=== PATIENT | female | born 1990 | race Caucasian/White ===

== ENCOUNTER → 2020-10-31 09:49 | Outpatient (CLI) | payer OTHER, SELFPAY ==
[2020-10-31 19:24] LABS: Add Manual Diff / Slide Review NO; Basophils Absolute Auto 100 /uL (0-100); Basophils Percent Auto 1.5 % (0-2); Eosinophils Absolute Auto 100 /uL (0-450); Eosinophils Percent Auto 2.1 % (2-4); Hematocrit 38.4 % (36-46); Hemoglobin 12.3 g/dL (12.0-16.0); Lymphocytes Absolute Auto 1100 /uL (1100-4500); Lymphocytes Percent Auto 21.5 % (25-40); Mean Corpuscular HGB Conc 32.1 % (30-36); Mean Corpuscular Hemoglobin 24.6 PG (26-34); Mean Corpuscular Volume 76.5 fL (80-100); Monocytes Absolute Auto 400 /uL (0-900); Monocytes Percent Auto 8.4 % (3-14); Neutrophils Absolute Auto 3400 /uL (1500-7000); Neutrophils Percent Auto 66.5 % (50-75); Platelet Count 239 X10^3/uL (150-400); Red Blood Cell Count 5.02 X10^6/uL (4.0-5.2); Red Cell Distribution Width 15.6 % (11.6-14.8); White Blood Cell Count 5.1 X10^3/uL (4.5-11.0)
[2020-10-31 19:41] LABS: Alanine Aminotransferase 18 IU/L (<35); Albumin 4.3 g/dL (3.5-5.0); Albumin Globulin Ratio 1.7 (1.0-2.8); Alkaline Phosphatase 45 U/L (38-126); Aspartate Aminotransferase 31 IU/L (14-36); BUN Creatinine Ratio 22.5 (6-22); Bilirubin Total 0.3 mg/dL (0.2-1.3); Blood Urea Nitrogen 16 mg/dL (7-17); Calcium 9.2 mg/dL (8.4-10.2); Carbon Dioxide 28 mmol/L (22-32); Chloride 103 mmol/L (98-107); Estimated Glomerular Filt Rate > 60.0 mL/min (>60); Globulin 2.6 g/dL (1.7-4.1); Glucose 106 mg/dL (70-100); HEMOLYSIS < 15 (0-50); Potassium 4.8 mmol/L (3.4-5.1); Sodium 139 mmol/L (137-145); Total Protein 6.9 g/dL (6.3-8.2)
[2020-10-31 20:05] LABS: TSH w/ Reflex to FT4 1.87 uIU/mL (0.47-4.68)
== END ==
PROVIDERS: PCP Physician Assistant; Visit Provider Physician Assistant
DX: N92.6 Irregular menstruation, unspecified (principal)
CPT/HCPCS: 80053; 84443; 85025

== ENCOUNTER → 2020-12-12 09:12 | Outpatient (CLI) | payer OTHER, SELFPAY ==
--- NOTE | 2020-12-12 | DI.US.S_ITS ---
PROCEDURE: US OB <= 14 WEEKS FETUS INDICATIONS: DATING AND VIABILITY OUTSIDE/PRIOR DATING DATA: Last menstrual period (LMP): 10/10/20 LMP-based estimated date of delivery (RONI): 07/17/21 First dating scan (date and location): 12/12/20 Estimated date of delivery (RONI) from first dating scan: 07/25/21 TECHNIQUE: Real-time scanning was performed of the fetus and maternal pelvic organs, with image documentation. Endovaginal scanning was also performed to better visualize the fetus and maternal ovaries. COMPARISON: None. FINDINGS: Embryo: 1.5 cm crown-rump length, which correlates with a gestational age of 7 weeks 6 days +/-5 days. heart rate is 145 beats per minute. Measurement variability in dating: +/- 4 weeks by LMP, +/- 7 days by mean sac diameter (use before 6 weeks gestation if crown-rump length not able to be measured), +/- 5 days by crown-rump length (up to 8 weeks 6 days gestation), +/- 7 days by crown-rump length (up to 13 weeks 6 days gestation). Maternal organs: Normal considering gestational status IMPRESSION: Single living intrauterine gestation, 7 weeks 6 day gestational age, +/-5 days. The delivery date therefore is projected to be centered on 07/25/21, +/-5 days. ?-hCG levels and endovaginal scanning: * Should see gestational sac if >7838-2701 IU/L. * Single hCG level, regardless of value cannot distinguish b/w ectopic and IUP. * If hCG level <3000, do not treat for ectopic, to avoid harming possible viable IUP. * If hCG level >3000, most likely non-viable IUP if a sac is not visualized. Get followup hCG AND pelvic US before treating for ectopic . * Any recommended followup: favor short-term US rather than serial hCG levels. Small percentage of ectopics may have hCG changes that mimic IUP or sAb. Gestational age and endovaginal scannin-6-7 rule of thumb * Should see gestational sac by 5 weeks EGA * Should see yolk sac by 6 weeks EGA * Should see embryo by 7 weeks EGA [employer] consensus statement: recommendations for reporting: * Definite ectopic : extra-uterine GS with YS, possibly embryo. * Probably ectopic : extra-uterine sac-like structure or adnexal mass. * of unknown location: no visible IUP or ectopic. o If single hCG level is 3000 or more: viable intrauterine gestation is unlikely but cannot be definitively excluded. o If pt is hemodynamically stable, a single hCG level should not be used to distinguish ectopic from intrauterine , or determining MTX Rx. o hCG and 7-10 day US followup (preferred) until definitive diagnosis. o Most ectopic pregnancies have hCG levels <3000 and often <1000, but is variable and does not predict rupture. * Probable intra-uterine : intra-uterine sac-like structure with no yolk sac or embryo, normal adnexa. * Definite intra-uterine : intra-uterine GS with yolk sac, possible embryo. SRU consensus statement Apr 2012: Findings suspicious but not diagnostic for early failure: * CRL <7 mm and no heart motion. * MGSD 16-24 mm and no embryo seen. * No embryo 7-13 days after US that showed GS without yolk sac. * No embryo 7-10 days after US that showed GS with yolk sac. * Absence of embryo 6 weeks or more after LMP. * Empty amniotic sac adjacent to yolk sac. * Large yolk sac of 7 mm or more. * Small sac size: MGSD minus CRL is < 5 mm. * Sustained bradycardia <80 bpm. Findings diagnostic for early failure: * CRL 7 mm or more and no heart motion. * MGSD 25 mm or more and no embryo seen. * No embryo seen 14 days or more after US showed a GS without yolk sac. * No embryo seen 11 days or more after US showed a GS with yolk sac. Nuchal translucency: abnormal at >3 mm between 10-14 weeks EGA >> Dictated by: Nigel Watson M.D. on 12/12/2020 at 10:21 Approved by: Nigel Watson M.D. on 12/12/2020 at 10:22
== END ==
PROVIDERS: PCP Physician Assistant; Referring Provider Physician Assistant; Visit Provider Nurse Practitioner
DX: Z34.91 Encounter for supervision of normal pregnancy, unspecified, first trimester (principal); Z3A.01 Less than 8 weeks gestation of pregnancy
CPT/HCPCS: 76801; 76817

== ENCOUNTER → 2021-03-09 10:12 | Outpatient (CLI) | payer SELFPAY ==
--- NOTE | 2021-03-09 | DI.US.S_ITS ---
PROCEDURE: US OB >= 14 WEEKS FETUS INDICATIONS: ANATOMY OUTSIDE/PRIOR DATING DATA: Last menstrual period (LMP): 10/10/20. LMP-based estimated date of delivery (RONI): 07/17/21 . First dating scan (date and location): 12/12/20 . Estimated date of delivery (RONI) from first dating scan: 07/25/21 . TECHNIQUE: Real-time scanning was performed of the fetus, with image documentation and biometric measurements. Endovaginal scanning: Not needed COMPARISON: 1st OB ultrasound. FINDINGS: General: A single living intrauterine gestation is present. Presentation: Breech Placenta: Placental position is anterior , without previa. Amniotic fluid index: 10.7 cm, normal range is 5-24 cm. heart rate: 147 beats per minute. Maternal cervical canal: 3.9 cm long. Normal lower limit is 2.5 cm. Report any funneling of internal cervical os: % of canal length, shape (U or V), width or any U-shaped funneling. biometrics: Biparietal diameter: 4.8 cm, 20 weeks 3 days Head circumference: 18.0 cm, 20 weeks 3 days Abdominal circumference: 14.9 cm, 20 weeks 1 day Femur length: 2.9 cm, 18 weeks 6 days Estimated gestational age from initial scan: 20 weeks 2 days Composite gestational age from present scan: 20 weeks 0 days Estimated weight and percentile: 305 g, 16th percentile Measurement variability for biometric dating: +/- 7 days from 14 weeks to 15 weeks 6 days gestation, +/- 10 days from 16 weeks to 21 weeks 6 days gestation, +/- 2 weeks from 22 weeks to 27 weeks 6 days gestation, +/- 3 weeks for 28 weeks gestation or later. weight reference: 4500 g or EFW >90/95% is considered macrosomia or large for gestational age. EFW <10% is small for gestational age. EFW 5% or less is considered intra-uterine growth restriction. Anatomic survey: Neuro: Ventricles are non-dilated at less than 10 mm. Cisterna magna is normal at 3-11 mm. Cerebellum is normal in size and morphology. Nuchal skin fold: Normal at less than 6 mm between 14-21 weeks gestational age. Face: Nose and lips, facial profile are normal. Spine: No evidence for spina bifida. Heart: 4-chambered heart is present, with normal ventricular outflow tracts. Diaphragm: Diaphragm is intact. Stomach: Left-sided stomach is present. Kidneys: No hydronephrosis. Normal is less than 5 mm in 2nd trimester, less than 7 mm in 3rd trimester. Cord: 3-vessel cord has orthotopic insertion. Bladder: Normal in size. Extremities: All 4 extremities identified. IMPRESSION: Appropriate interval growth, no anomaly seen. Breech presentation, normal amniotic fluid volume. Dictated by: Nigel Watson M.D. on 03/09/2021 at 16:58 Approved by: Nigel Watson M.D. on 03/09/2021 at 17:01
== END ==
PROVIDERS: PCP Physician Assistant; Referring Provider Nurse Practitioner Obstetrics & Gynecology; Visit Provider Nurse Practitioner Obstetrics & Gynecology
DX: Z34.92 Encounter for supervision of normal pregnancy, unspecified, second trimester (principal); Z3A.20 20 weeks gestation of pregnancy
CPT/HCPCS: 76811

== ENCOUNTER → 2021-06-30 13:02 | Outpatient (ROUT) | payer OTHER, SELFPAY | PROVIDERS: PCP Physician Assistant; Visit Provider Nurse Practitioner Obstetrics & Gynecology | DX: Z34.90 Encounter for supervision of normal pregnancy, unspecified, unspecified trimester (principal); Z36.85 Encounter for antenatal screening for Streptococcus B; Z3A.36 36 weeks gestation of pregnancy | CPT/HCPCS: 87081 ==

== ENCOUNTER 2021-07-24 19:09 | Inpatient (IN) | payer OTHER, SELFPAY ==
--- NOTE | 2021-07-24 19:21 | P.HPOB_ITS ---
OB HPI Date/Time Date of admission: 07/24/21 Date Patient Seen: 07/24/21 Time Patient Seen: 19:21 History of Present Condition Chief complaint: : 1 Para: 0 Estimated Date of Delivery: 07/25/21 Estimated Gestational Age (weeks): 39.6 Narrative: Maria M Marks is a 31 year old female @ [id number] by LMP and early US who presents for evaluation of labor. Contractions started this morning and s lowly progressed in frequency and intensity. Noticed some bloody show and mucus discharge throughout the day. +FM. No LOF. Uncomplicated PN care w/ CNM. Desires low intervention . Partner, Ramu, and sister are present and supportive. History of Present care: good care, initiated at week # (11), number of visits (9) and pounds weight gain (38) Dating criteria: LMP confirmed by 1st trimester US Ultrasounds: normal mid trimester US Obstetrical complications: none Medical complications: none Preadmission Labs Blood type: A (+) positive -: Antibody screen: negative, GBS status: negative, HBsAG: negative, HIV: negative and RPR/VDLR: negative -: Chlamydia screen: not detected and Gonorrhea screen: not detected -: Rubella: immune and Varicella: immune HCT: 34.7 HCAB: negative Cell-free DNA: negative, male 1 hr GTT: 131 Evaluation Evaluation Baseline heart rate: 135 Variability: Moderate (11-25) monitor accelerations: Present Monitor Decelerations: Absent Contraction Frequency (minutes): 3 Uterine Contraction Intensity: Strong/Firm Dilation (cm): 6 Effacement (%): 90 Dilation: >/=5 cm Effacement: >/=80% station: -2 Position of cervix: posterior Consistency: soft Ramos score: 9 PFSH Medical History (Updated 07/24/21 @ 19:30 by Barbara Gutierrez CNM) Eating disorder Nail fungus Family History (Updated 07/24/21 @ 19:31 by Barbara Gutierrez CNM) Grandmother Diabetes mellitus Grandfather Stroke Mother Depression Social History Smoking Status: Never smoker Meds Home Medications and Allergies Home Medications Medication Instructions Recorded Confirmed Type No Known Home Medications 10/05/20 10/31/20 History Allergies Allergy/AdvReac Type Severity Reaction Status Date / Time No Known Drug Allergies Allergy Verified 10/31/20 09:07 Review of Systems Review of Systems ROS: Yes All systems reviewed with the patient and are negative except as otherwise documented OB Exam Narrative Exam Narrative: VS: BP 134/75mmHg , HR 80bpm, T 36.1C Temporal Resp Effort & Inspection: normal respiratory effort Auscultation: clear to auscultation bilaterally Cardio Rate: regular rate Rhythm: regular rhythm Heart Sounds: S1 normal and S2 normal Presentation: vertex Objective Labs Result Diagrams: 07/24/21 19:45 Assessment and Plan Assessment and Plan Assessment and Plan narrative: A: Term nullipara Active labor no indication for GBS prophylaxis Cat I FHR P: Admit, routine orders. Labor support, PRN. Reassess in 4 hours or sooner, PRN.
[2021-07-24 20:01] LABS: Add Manual Diff / Slide Review NO; Basophils Absolute Auto 0 /uL (0-100); Basophils Percent Auto 0.2 % (0-2); Eosinophils Absolute Auto 100 /uL (0-450); Eosinophils Percent Auto 1.3 % (2-4); Hematocrit 37.9 % (36-46); Hemoglobin 12.3 g/dL (12.0-16.0); Lymphocytes Absolute Auto 1900 /uL (1100-4500); Lymphocytes Percent Auto 16.1 % (25-40); Mean Corpuscular HGB Conc 32.5 % (30-36); Mean Corpuscular Hemoglobin 24.1 PG (26-34); Mean Corpuscular Volume 74.2 fL (80-100); Monocytes Absolute Auto 1300 /uL (0-900); Monocytes Percent Auto 10.8 % (3-14); Neutrophils Absolute Auto 8400 /uL (1500-7000); Neutrophils Percent Auto 71.6 % (50-75); Platelet Count 201 X10^3/uL (150-400); Red Blood Cell Count 5.11 X10^6/uL (4.0-5.2); Red Cell Distribution Width 15.4 % (11.6-14.8); White Blood Cell Count 11.7 X10^3/uL (4.5-11.0)
[2021-07-24 20:19] LABS: COVID19 -Nasal RAPID Negative (Negative)
[2021-07-24 20:22] VITALS: BP 134/75
[2021-07-25] MEDS: OXYTOCIN PREMIX 30 UNIT/500 ML PLAST..BAG 200 UNIT IV (01:25)
--- NOTE | 2021-07-25 01:37 | P.PCNOB_ITS ---
Labor & Delivery Delivery date: 07/25/21 Intrapartal Events: None Cervical ripening method: none Induction method: none Delivery monitor: external FHT Route of delivery: Episiotomy description: None L&D Laceration Description: None Estimated blood loss (mL): 75 Anesthesia Type: None Narrative: Maria M labored well without augmentation or anesthesia. Was presumed complete with spontaneous urge to push followed shortly thereafter by rectal bulging. NSVB of a vigorous baby boy in NOVA position w/ no nuchal cord and easy delivery of the shoulders. Poppyllium was in hands and knees position and her son was passed through her legs to her arms. They were assisted to semi-jessica's position and 30 units of pitocin in 500mL LR was started at 300mL/hr for AMTSL. After cessation of pulsation, the cord was double clamped by CNM and cut by FOB. Hospital cord blood hold sample was collected. Gentle cord traction and single maternal push led to spontaneous, Schultze delivery of an apparently intact placenta, membranes and 3VC. Fundus immediately firm and bleeding minimal. Vagina and perineum inspected and intact. QBL 75mL. Both mother and baby stable and skin to skin as I left the room. [place] Baby 1: Infant gender: Male Presentation: vertex Position: Right Occiput Anterior Placenta delivery description: Spontaneous Cord Vessel Description: 3 Vessels score (1 min): 9 score (5 min): 9 weight: 3.405 kg Plan for aftercare: Routine care
[2021-07-25 03:02] VITALS: TEMP 36.3
[2021-07-25] MEDS: KETOROLAC 30 MG/ML VIAL IV (03:02)
[2021-07-25] MEDS: IBUPROFEN 600 MG TABLET PO ×2 (08:52→16:24)
[2021-07-25 17:53] VITALS: BP 121/67; PULSE 78; RESP 18; TEMP 36.7
--- NOTE | 2021-07-25 18:39 | P.DS_ITS ---
Discharge Providers Provider Date of admission: 07/24/21 19:09 Discharge Date: 07/25/21 Primary care physician: Cori Cruz PA-C Consults: 07/26/21 01:35 Consult to Accounting Reconciliation Clerk Routine Comment: Discharge provider: Barbara Gutierrez CNM Summary Hospital Course Date Patient Seen: 07/25/21 Time Patient Seen: 18:39 Diagnoses: o80 Hospital Course: Trillium is 17 hours s/p NSVB. , voiding and ambulating independently. Tolerating a general diet. Pain is well controlled w/ PO medication. Bleeding is minimal without clots. Eager for d/c to home tonight. Peripartum Data Delivery Method: Natural Vaginal Laceration Description: None Episiotomy description: None 1: Gender: Male Disposition of : home Discharge Diagnosis (1) Encounter for full-term uncomplicated delivery: Start Date: 07/25/21 Start Time: 01:21 Status: Acute Problem Details: routine PP course Status at Discharge Cognitive/behavioral status at discharge: oriented Functional status at discharge: independent ambulation Overall status at discharge: patient is progressing back to baseline Time Spent with Patient Time attestation: Total time spent providing and/or coordinating discharge services: Objective Labs Result Diagrams: 07/24/21 19:45 Labs: Laboratory Results - last 24 hr 07/24/21 07/24/21 07/24/21 19:45 19:45 19:45 WBC 11.7 H RBC 5.11 Hgb 12.3 Hct 37.9 MCV 74.2 L MCH 24.1 L MCHC 32.5 RDW 15.4 H Plt Count 201 Neut % (Auto) 71.6 Lymph % (Auto) 16.1 L [place] % (Auto) 10.8 Eos % (Auto) 1.3 L Baso % (Auto) 0.2 Neut # (Auto) 8400 H Lymph # (Auto) 1900 [place] # (Auto) 1300 H Eos # (Auto) 100 Baso # (Auto) 0 SARS-CoV-2 (PCR) Negative Blood Type A Positive Antibody Screen Negative Exam Vital Signs (past 8 hours): - 07/25/21 17:53 Temperature 98.1 F Pulse Rate 78 Respiratory Rate 18 Blood Pressure 121/67 Other: Fundus firm @ u, lochia scant, no clots. Perineum intact. Discharge Plan Discharge Plan Patient Disposition: Home Discharge orders & Medications Prescriptions: Continued Vitamin 1 tab PO DAILY 0RF Fish Oil 1 tab PO DAILY 0RF Medication counseling provided by Pharmacist: No Follow up/Referrals: Cori Cruz PA-C [Primary Care Provider] - Diet/Activity/Treatments Diet: Regular Activity: pelvic rest x 6 weeks Skin/Wound/Dressing Care Report to your healthcare provider any signs of infection, such as:: chills, fever, increased pain, unusual drainage and unusual redness Visit Report/Discharge Packet Stand Alone Forms: Discharge: Care Discharge Data Primary Care Provider: Cori Cruz
== END 2021-07-25 19:55 | disposition home or self-care (01) | DRG 807 ==
PROVIDERS: Admitting Provider Nurse Practitioner Obstetrics & Gynecology; PCP Physician Assistant; Referring Provider Nurse Practitioner Obstetrics & Gynecology; Visit Provider Nurse Practitioner Obstetrics & Gynecology
DX: O80 Encounter for full-term uncomplicated delivery (principal); Z37.0 Single live birth; Z3A.39 39 weeks gestation of pregnancy; Z20.822 Contact with and (suspected) exposure to COVID-19
CPT/HCPCS: 36415; 59050; 85025; 86850; 86900; 86901; 87635; C9803; G0379; J1885; J2590

== ENCOUNTER → 2024-04-26 09:28 | Outpatient (CLI) | payer OTHER, SELFPAY ==
--- NOTE | 2024-04-26 09:32 | DI.US.S_ITS ---
PROCEDURE: US OB <= 14 WEEKS FETUS INDICATIONS: DATING/VIABILITY OUTSIDE/PRIOR DATING DATA: Last menstrual period (LMP): 02/21/2024. LMP-based estimated date of delivery (RONI): 11/27/2024. First dating scan (date and location): 04/15/2024. Estimated date of delivery (RONI) from first dating scan: 12/06/2024. TECHNIQUE: Real-time scanning was performed of the fetus and maternal pelvic organs, with image documentation. Endovaginal scanning was also performed to better visualize the fetus and maternal ovaries. COMPARISON: Located within [facility], OB <= 14 WEEKS FETUS, 12/12/2020, 9:25. FINDINGS: Embryo: [place]-rump length 0.5 cm corresponds with a 6 week 1 day gestation Heart rate: No cardiac motion observed Maternal organs: Ovaries unremarkable. IMPRESSION: Suspicious but not diagnostic for early failure Approved by: Guero Mchugh M.D. on 04/26/2024 at 17:10
== END ==
LOC: US 09:31
PROVIDERS: PCP Physician Assistant; Referring Provider Nurse Practitioner Obstetrics & Gynecology; Visit Provider Nurse Practitioner Obstetrics & Gynecology
DX: O26.851 Spotting complicating pregnancy, first trimester (principal)
CPT/HCPCS: 76801; 76817

== ENCOUNTER → 2024-09-01 14:05 | Outpatient (CLI) | payer OTHER, SELFPAY ==
[2024-09-01 19:55] LABS: Free T4, Direct Thyroxine 0.69 ng/dL (0.78-2.19)
[2024-09-01 20:09] LABS: Thyroid Stimulating Hormone 2.32 uIU/mL (0.47-4.68)
[2024-09-01 20:44] LABS: Progesterone, Total 9.18 ng/mL
== END ==
PROVIDERS: PCP Physician Assistant; Visit Provider Nurse Practitioner Obstetrics & Gynecology
DX: N96 Recurrent pregnancy loss (principal)
CPT/HCPCS: 84144; 84439; 84443

== ENCOUNTER 2025-05-19 07:21 | Inpatient (IN) | payer OTHER, SELFPAY ==
[2025-05-19 08:00] VITALS: BP 119/66
[2025-05-19 09:44] LABS: Add Manual Diff / Slide Review NO; Hematocrit 38.2 % (36-46); Hemoglobin 12.8 g/dL (12.0-16.0); Lymphocytes Absolute Auto 800 /uL (1100-4500); Mean Corpuscular HGB Conc 33.6 % (30-36); Mean Corpuscular Hemoglobin 24.2 PG (26-34); Mean Corpuscular Volume 72.1 fL (80-100); Platelet Count 186 X10^3/uL (150-400)
--- NOTE | 2025-05-19 11:28 | PM.OBHP.1 ---
OB HPI Date/Time Date of admission: 05/19/25 Date Patient Seen: 05/19/25 Time Patient Seen: 07:33 History of Present Condition Chief complaint: INDUCTION : 4 Para: 1 Estimated Date of Delivery: 05/20/25 Estimated Gestational Age (weeks): 39w6d Narrative: Maria M Marks is a 35 year old female at 39w6d by sure LMP with 34 day cycles and confirmed by 7 week ultrasound. complicated only by GDMA2. She had excellent care with CNM and MFM comanaged her GDMA2, with insulin initiated at 34 weeks and max dose of NPH insulin 10 units qHS. Took 10 u insulin qHS 09/16/24 despite recommendation she take 5-6 units depending on dinner choice. Maria M is here for induction of labor and well supported by her , Ramu, and her sister, Negar. Rush bulb was placed in clinic approx 1700 05/18/25 and came out approx 0230 today. She prefers low intervention, and opts for amniotomy to see if labor progresses well. If not, plans to consent to pitocin later. Maria M feels well, got okay sleep overnight. Indications Indication for induction OB: gestational diabetes History of Present care: good care, initiated at week # (7), number of visits (15) and pounds weight gain (29) Dating criteria: LMP confirmed by 1st trimester US (LMP dating with 34 day menstrual cycles) Ultrasounds: normal 1st trimester US, normal mid trimester US and other (normal growth ultrasound at 36 weeks (52%ile)) Obstetrical complications: gestational diabetes Medical complications: none Preadmission Labs Blood type: A (+) positive -: Antibody screen: negative, GBS status: negative, HBsAG: negative, HIV: negative and RPR/VDLR: negative -: Chlamydia screen: not detected and Gonorrhea screen: not detected -: Rubella: immune and Varicella: immune HCT: 37.9 HCAB: negative PAP: Normal (and HPV neg 09/2024) Cell-free DNA: Myriad Prequel Neg x 3, XY Urine: Negative UC at 9 weeks 1 hr GTT: 142 3 hr GTT: 1 hr (153), 2 hr (111) and 3 hr (not performed (3 hour ordered; 2 hour completed)) Fasting blood glucose: 96 Prior (ies) History: Hx # Term Pregnancies: 1 Hx # Pregnancies: 0 Number of Living Children: 1 Multiple births: 0 Spontaneous abortions: 2 Ectopic pregnancies: 0 Elective abortions: 0 Evaluation Evaluation Baseline heart rate: 130 Variability: Moderate (6-25) monitor accelerations: Present Monitor Decelerations: Absent Contraction Frequency (minutes): 6 (q 6-10 min, painless) PFSH Medical History Eating disorder Nail fungus Family History (Updated 07/24/21 @ 19:31 by Barbara Gutierrez CNM) Grandmother Diabetes mellitus Grandfather Stroke Mother Depression Meds Home Medications and Allergies Home Medications ?Medication ?Instructions ?Recorded ?Confirmed ?Type Fish Oil 1 tab PO DAILY 07/24/21 07/25/21 History Vitamin 1 tab PO DAILY 07/24/21 07/24/21 History Allergies Allergy/AdvReac Type Severity Reaction Status Date / Time No Known Drug Allergies Allergy Verified 05/19/25 11:52 Review of Systems Review of Systems Narrative: As mentioned in HPI OB Exam Vital signs Blood Pressure: 119/86 Pulse Rate: 81 Respiratory Rate: 16 Temperature: 98 F Resp Effort & Inspection: normal respiratory effort and able to speak in complete sentences Auscultation: clear to auscultation bilaterally Cardio Rate: regular rate Rhythm: regular rhythm Heart Sounds: S1 normal, S2 normal and normal, physiologic split S2 External Female Exam: Yes normal external appearance (gravid uterus) OB/External & Speculum: external exam normal Presentation: vertex Estimated Weight (lbs): 8 Other: CE: 5.5/80/-1/mid/soft AROM at 0811 with scant clear/bloody fluid. Objective Labs 05/19/25 09:30 Labs: Laboratory Results - last 24 hr 05/19/25 05/19/25 09:30 09:37 WBC 9.4 RBC 5.30 H Hgb 12.8 Hct 38.2 MCV 72.1 L MCH 24.2 L MCHC 33.6 RDW 15.3 H Plt Count 186 Neut % (Auto) 83.1 H Lymph % (Auto) 8.6 L [place] % (Auto) 6.8 Eos % (Auto) 0.9 L Baso % (Auto) 0.6 Neut # (Auto) 7800 H Lymph # (Auto) 800 L [place] # (Auto) 600 Eos # (Auto) 100 Baso # (Auto) 100 POC Whole Bld Glucose 94 Blood Type A Positive Antibody Screen Negative Assessment and Plan Assessment and Plan Assessment and Plan narrative: Term multip GDMA2 GBS prophylaxis NOT indicated Rhogam NOT indicated RNST on admission Admit to L&D. Blood glucose POC q 2 hours in active labor Discuss options for IOL. AROM Will re-evaluate in 3-4 hours or sooner PRN. Time-Based Coding :: [TOTAL MINUTES] spent with patient and on the chart (including review of chart, obtaining history, exam, reviewing outside data, placing orders, documenting exam and treatment plan, and counseling patient) on [DATE].
[2025-05-19] MEDS: KETOROLAC 30 MG/ML VIAL IV (11:48)
[2025-05-19 11:58] VITALS: BP 119/86; PULSE 81; RESP 16; TEMP 36.6
--- NOTE | 2025-05-19 12:04 | PM.OBPRVD ---
Events: Gestational Diabetes Labor & Delivery Delivery date: 05/19/25 Delivery Time: 10:44 Intrapartal Events: Precipitous Labor < 3 hours Cervical ripening method: per Rush bulb protocol (prior to admission) Induction method: AROM Delivery monitor: external FHT Route of delivery: L&D Laceration Description: Periurethral - 1st Degree and Perineal - 1st Degree Estimated blood loss (mL): 150 Anesthesia Type: None Narrative: Labor started within an hour of AROM. Poppymonroe worked hard until she felt the spontaneous urge to push at 1035 while standing next to the bed; she pushed effectively for a 9 min long 2nd stage. FHR was reassuring by doppler during 2nd stage. Head fully delivered ati 1043 and after restutition and posterior shoulder delivered spontaneiously, NSVB of baby at 1044 and caught by his father, Ramu. Baby was pass by CNM through her leg and received by Maria M. Apgars 9/9. They were assisted into bed and remained skin to skin while placenta was delivered and cord was cut. Placenta delivered spontaneously with maternal efforts and appeared to be intact. Pitocin @ 999 mu/min started for AMTSL prior to placental delivery and reduced to 334 mu/min when bleeding noted to be light. DORIS double clamped 3 vessel cord and Ramu cut it at 12 minutes of life. Cord blood collected for blood typing PRN. Perineum inspected and found to be have tiny and hemostatic perineal laceration, not requiring repair. Shallow periurethral lacerations noted bilaterally. Blood loss estimated at 150 mL with firm fundus and scant bleeding with massage after placental delivery. Mom and baby left stable and is being initiated. Mraia M and Ramu and auntie Negar are thrilled to meet baby boy. Christina REID, DORIS, IBCLC [place] Baby 1: Infant gender: Male Presentation: vertex Position: Left Occiput Anterior Placenta delivery description: Spontaneous Cord Vessel Description: 3 Vessels score (1 min): 9 score (5 min): 9 weight: 3.617 kg Plan for aftercare: Routine care (Toradol x 1 given; plan to check BG at least once due to NPH dosing 05/18/25. )
[2025-05-19] MEDS: ACETAMINOPHEN 325 MG TABLET 650 MG PO ×2 (15:12→22:07)
[2025-05-19] MEDS: IBUPROFEN 600 MG TABLET PO (18:06)
[2025-05-19 19:45] LABS: Alanine Aminotransferase 17 IU/L (<35)
[2025-05-19 20:20] LABS: Hepatitis B Surface Antigen NEGATIVE s/c (NEGATIVE)
[2025-05-19 20:35] LABS: HIV 1 & 2 Ab/Ag 4th Gen Combo NEGATIVE (NEGATIVE); Hep C Virus Ab w/Reflex Quant NEGATIVE s/c (NEGATIVE)
[2025-05-20] MEDS: IBUPROFEN 600 MG TABLET PO ×2 (00:19→05:59)
[2025-05-20] MEDS: ACETAMINOPHEN 325 MG TABLET 650 MG PO (04:06)
[2025-05-20 12:08] VITALS: BP 119/86; PULSE 81; RESP 16; TEMP 36.6
--- NOTE | 2025-05-20 14:04 | PM.OBDS.1 ---
Discharge Providers Provider Date of admission: 05/19/25 07:21 Discharge Date: 05/20/25 Primary care physician: Cori Cruz PA-C Consults: 05/19/25 15:00 Consult to Biometrics Analyst Routine Comment: Discharge provider: Christina Devi CNM, ARNP Summary Hospital Course Date Patient Seen: 05/20/25 Time Patient Seen: 14:05 Diagnoses: O80 Peripartum Data Delivery Method: Natural Vaginal [place] 1: Gender: Male Disposition of : home Discharge Diagnosis (1) Encounter for full-term uncomplicated delivery: Status: Acute Problem Details: routine PP course (2) Gestational diabetes requiring insulin: Status: Acute Problem Details: Plan for 6 week 2 hr GTT Status at Discharge Cognitive/behavioral status at discharge: oriented and calm Functional status at discharge: independent ambulation Overall status at discharge: patient is progressing back to baseline Time Spent with Patient Time attestation: Total time spent providing and/or coordinating discharge services: Time spent: Less than 30 minutes Specific discharge activities: discharge teaching Objective Labs 05/19/25 09:30 Labs: Laboratory Results - last 24 hr 05/19/25 05/19/25 14:27 18:50 POC Whole Bld Glucose 190 H ALT 17 Hep Bs Antigen Negative Hepatitis C Antibody Negative HIV 1&2 Ab/P24 Ag 4thGn Negative Exam Vital Signs (past 8 hours): - 05/20/25 12:08 Temperature 98 F Pulse Rate 81 Respiratory Rate 16 Blood Pressure 119/86 Other: Fundus firm at U, midline. Lochia scant Perineum intact with minimal edema Discharge Plan Discharge Plan Patient Disposition: Home Discharge orders & Medications Prescriptions: Continued Vitamin 1 tab PO DAILY Fish Oil 1 tab PO DAILY Medication counseling provided by Pharmacist: No Follow up/Referrals: Cori Cruz PA-C [Primary Care Provider, Medical] Discharge Health Status Multidrug resistant organism: No MDRO Diet/Activity/Treatments Diet: Diet as Tolerated and Regular Skin/Wound/Dressing Care Report to your healthcare provider any signs of infection, such as:: chills, fever and increased pain Visit Report/Discharge Packet Stand Alone Forms: Discharge: Care, Patient Portal/API, Stroke Signs & Symptoms Discharge Data Primary Care Provider: Cori Cruz
[2025-05-22 06:41] LABS: Hepatitis B Surf Ab Qualitativ Reactive (.)
== END 2025-05-20 11:00 | disposition home or self-care (01) | DRG 807 ==
PROVIDERS: Admitting Provider Advanced Practice Midwife; PCP Physician Assistant; Referring Provider Advanced Practice Midwife; Visit Provider Advanced Practice Midwife
DX: O24.424 Gestational diabetes mellitus in childbirth, insulin controlled (principal); Z37.0 Single live birth; O62.3 Precipitate labor; Z3A.39 39 weeks gestation of pregnancy
CPT/HCPCS: 36415; 59050; 82962; 85025; 86850; 86900; 86901; G0379; J1885

== ENCOUNTER → 2025-06-13 08:40 | Outpatient (CLI) | payer OTHER, SELFPAY ==
[2025-06-13 12:02] LABS: Glucose Tol Interpretation INTERPRETATION
[2025-06-13 19:10] LABS: Glucose 1 Hour 144 mg/dL (70-170)
[2025-06-13 19:11] LABS: Glucose 2 Hour 102 mg/dL (70-140)
== END ==
PROVIDERS: PCP Physician Assistant; Visit Provider Advanced Practice Midwife
DX: Z39.1 Encounter for care and examination of lactating mother (principal); O24.414 Gestational diabetes mellitus in pregnancy, insulin controlled
CPT/HCPCS: 82951; 82952